=== PATIENT | female | born 1945 | race Caucasian/White ===

== ENCOUNTER → 2019-07-22 14:10 | Outpatient (CLI) | payer MEDICARE, OTHER, SELFPAY ==
--- NOTE | 2019-07-22 14:22 | XR_ITS ---
PROCEDURE: XR CHEST 2V CLINICAL HISTORY: CHRONIC COUGH COMPARISON: No exams were available for comparison FINDINGS: There is mild cardiomegaly without failure. There are no previous exams available for comparison. In the left perihilar region there is a nodular area of increased density measuring approximately 17 mm.. There is some minimal linear density noted at this region as well. There is also some faint nodularity overlying the left lower lung zone possibly due to nipple shadow or pulmonary nodule. In the right upper lobe there is a faint nodular areas of increased density. There is thickening of the right minor fissure No acute bony abnormalities. IMPRESSION: Abnormal chest CT with bilateral nodular opacities. Metastatic disease or nodular areas of infiltrate or inflammatory nodules considered. Suggest chest CT with contrast for further evaluation. Dictated by: Titus He MD 07/22/2019 16:23 Electronically signed by Titus He MD in [place] 07/22/2019 16:23
== END ==
PROVIDERS: PCP Family Medicine; Visit Provider Nurse Practitioner Family
DX: R05 Cough (principal)
CPT/HCPCS: 71046

== ENCOUNTER → 2019-08-26 12:24 | Outpatient (CLI) | payer MEDICARE, OTHER, SELFPAY ==
--- NOTE | 2019-08-26 12:35 | CT_ITS ---
PROCEDURE: CT CHEST W CON CLINCAL INDICATION: MULTIPLE LUNG NODULES COMPARISON: No exams were available for comparison TECHNIQUE: IV Contrast: 75ml Optiray 350 Axial images obtained with sagittal and coronal reformats. All CT scans at the facility use one or more dose reduction, viz: automated exposure control, ma/kV adjustment per patient size (including targeted exams where dose is matched to indication, i.e. head), or iterative reconstruction technique. FINDINGS: HEART AND MEDIASTINAL STRUCTURES: There is cardiomegaly without active CHF. Subcentimeter hypodensities in both thyroid lobes right greater than left are noted. Multinodular goiter is suspected. There is no lymphadenopathy. There is relative prominence of the main pulmonary arterial segments which would raise the question of pulmonary arterial hypertension. 4 LUNGS AND PLEURAL SPACES: Lungs are emphysematous in contour. There are innumerable noncalcified pulmonary nodules seen throughout both lung chung. A few calcified nodules are seen consistent with healed granulomatous disease. One of the largest nodules in the anterior left costophrenic sulcus image 66 series 3 measures 1.2 x 1.7 centimeters. Post inflammatory or neoplastic etiology would have to be considered for the noncalcified nodules. There are some linear densities in both lung chung consistent with fibrosis. There is some relative nodular thickening of the right minor fissure and superior aspect of right oblique fissure. BONY STRUCTURES: No acute bony abnormalities apparent. UPPER ABDOMEN: Indeterminate 3 x 7 millimeter hypodensity is seen in the extreme posterior right liver dome image 77 series 3. Unremarkable. ADDITIONAL FINDINGS: No other significant abnormalities. IMPRESSION: Innumerable indeterminate noncalcified pulmonary nodules both lung chung as described. Metastatic disease is not excluded. Pulmonary consultation is recommended. Consider biopsy for tissue diagnosis. Dictated by: Allen Feng 08/26/2019 13:50 Electronically signed by Allen Feng in [place] 08/26/2019 13:50
[2019-08-26 12:59] LABS: Blood Urea Nitrogen 16 mg/dl (7-17); Estimated Glomerular Filt Rate 82 ml/min (>60); GFR (African American) 100 ML/MIN (>60)
== END ==
PROVIDERS: PCP Family Medicine; Visit Provider Nurse Practitioner Family
DX: R91.8 Other nonspecific abnormal finding of lung field (principal)
CPT/HCPCS: 36415; 71260; 82565; 84520; Q9967

== ENCOUNTER → 2021-02-21 13:52 | Outpatient (CLI) | payer MEDICARE, OTHER, SELFPAY | PROVIDERS: PCP Family Medicine; Visit Provider Nurse Practitioner Family | DX: R91.8 Other nonspecific abnormal finding of lung field (principal); R05 Cough; I48.92 Unspecified atrial flutter | CPT/HCPCS: 94667 ==

== ENCOUNTER → 2021-06-19 12:44 | Outpatient (CLI) | payer MEDICARE, OTHER, SELFPAY | PROVIDERS: PCP Nurse Practitioner Family; Visit Provider Nurse Practitioner | DX: U07.1 COVID-19 (principal) | CPT/HCPCS: C9803; U0003; U0005 ==

== ENCOUNTER 2022-07-13 20:00 | Emergency (ER) | payer MEDICARE, OTHER, SELFPAY ==
[2022-07-13] VITALS (8 sets, daily range): BP systolic 106–129; BP diastolic 62–91; PULSE 70–86; RESP 16; TEMP 36.4–36.8; O2SAT 95–98; BMI 19.6
--- NOTE | 2022-07-13 20:22 | CT_ITS ---
PROCEDURE INFORMATION: Exam: CT Abdomen And Pelvis Without Contrast Exam date and time: 07/13/2022 8:35 PM Age: 76 years old Clinical indication: Abdominal pain; Flank; Left; Additional info: Left lower flank pain TECHNIQUE: Imaging protocol: Computed tomography of the abdomen and pelvis without contrast. Radiation optimization: All CT scans at this facility use at least one of these dose optimization techniques: automated exposure control; mA and/or kV adjustment per patient size (includes targeted exams where dose is matched to clinical indication); or iterative reconstruction. Other protocol: This patient has received 0 known CTs and 0 known cardiac nuclear medicine studies in the 12 months prior to the current study. COMPARISON: CT CHEST W CON 08/26/2019 1:13 PM FINDINGS: Lungs: Partly calcified nodule in the left lower lobe is compelling for a granuloma. Additional bibasilar linear scarring is noted. Pleural spaces: Small right pleural effusion. Heart: Cardiomegaly with particular prominence of the ventricles. Liver: Normal configuration. Homogeneous parenchyma. Gallbladder and bile ducts: No regional inflammation. No calcified stones. No ductal dilation. Pancreas: Normal. No ductal dilation. Spleen: Normal. No splenomegaly. Adrenal glands: Normal configuration. Kidneys and ureters: Left intrarenal stone is noted. No ureteral stones or obstruction. Stomach and bowel: Unremarkable. No obstruction. No mural thickening. Appendix: Normal appendix is confirmed. Intraperitoneal space: No free air. No significant fluid collection. Vasculature: Normal caliber arterial structures. Lymph nodes: No enlarged lymph nodes. Urinary bladder: Decompressed urinary bladder. Reproductive: Atrophic uterus as expected. No adnexal masses. Bones/joints: No fracture or destructive lesion. Prior left femoral ORIF. Soft tissues: Unremarkable. IMPRESSION: No acute abnormality to explain patient's left flank/lower quadrant pain. In particular, there is no evidence of renal obstruction or inflammation. An intrarenal stone is noted on the left.
[2022-07-13 20:23] LABS: Microscopic, Urine URINE MICROSCOPIC (MICROSCOPIC)
--- NOTE | 2022-07-13 20:23 | ECG_ITS ---
APPROVED REPORT Exam: Resting ECG HR:70 bpm ECG Measurements Heart Rate 70 AXES QRSd 131 QRS 95 QT 450 T 61 QTc 470 Conclusion ATRIAL FIBRILLATION RIGHT BUNDLE BRANCH BLOCK [120+ ms QRS DURATION, UPRIGHT V1, 40+ ms S IN I/aVL/V4/V5/V6] SEPTAL MYOCARDIAL INFARCTION , OF INDETERMINATE AGE [40+ ms Q WAVE IN V1/V2] MODERATE T-WAVE ABNORMALITY, CONSIDER LATERAL ISCHEMIA [-0.1+ mV T-WAVE IN I/aVL/V5/V6] ABNORMAL ECG UNCONFIRMED REPORT Electronically signed by : Doc Eastman MD 07/15/2022 18:56:16
--- NOTE | 2022-07-13 20:23 | XR_ITS ---
PROCEDURE INFORMATION: Exam: XR Chest Exam date and time: 07/13/2022 8:29 PM Age: 76 years old Clinical indication: Pain; Chest pressure TECHNIQUE: Imaging protocol: Radiologic exam of the chest. Views: 2 views. COMPARISON: CT CHEST W CON 08/26/2019 1:13 PM FINDINGS: Lungs: Stable right mid lung linear opacity is compelling for scar. Superimposed heterogeneous opacities are noted throughout both lungs may reflect superimposed pneumonitis. Nodular lung disease seen on prior CT in 2019 is not appreciated on today's exam. Pleural spaces: Right pleural effusion. Heart/Mediastinum: Enlarged cardiac silhouette. Bones/joints: Age appropriate. IMPRESSION: 1. Heterogeneous opacities throughout both lungs and small right pleural effusion are worrisome for pneumonia. 2. Unchanged cardiomegaly. 3. Previously seen nodular lung disease is not appreciated on today's exam.
--- NOTE | 2022-07-13 20:26 | PC.NURSE ---
NOTIFIED RADIOLOGY OF CT. DR. OROZCO IN TO SEE PATIENT.
[2022-07-13 20:28] LABS: Basophils # 0.1 K/mm3 (0-0.2); Eosinophils # 0.3 K/mm3 (0.0-0.4); Eosinophils % 4.6 % (0.1-12.0); Hematocrit 41.5 % (37.0-47.0); Hemoglobin 13.2 g/dL (12.2-16.2); Lymphocytes # 1.6 K/mm3 (0.7-4.5); Lymphocytes % 25.7 % (10-50); Mean Corpuscular HGB Conc 31.9 g/dL (31.8-35.4); Mean Corpuscular Hemoglobin 31.3 pg (27.0-31.2); Mean Corpuscular Volume 98.4 fl (81-99); Mean Platelet Volume 9.2 fl (7.4-10.4); Monocytes # 0.3 K/mm3 (0.1-1.0); Monocytes % 4.9 % (1.7-9.3); Neutrophils % 63.7 % (37.0-80.0); Platelet Count 151 K/mm3 (142-424); Red Blood Count 4.22 M/mm3 (4.20-5.40); Red Cell Distribution Width 13.6 % (11.5-17.5); White Blood Count 6.3 K/mm3 (4.8-10.8)
[2022-07-13 20:34] LABS: Appearance,Urine CLOUDY (Clear); Bilirubin,Urine Negative (Negative); Blood, Urine 3+ (Negative); Color,Urine RED (Yellow); Glucose,Urine (UA) TRACE (Negative); Ketones,Urine TRACE (Negative); Leukocyte Esterase,Urine 1+ (Negative); Nitrate,Urine POSITIVE (Negative); Protein,Urine 3+ (Negative); Specific Gravity, Urine 1.025 (1.005-1.030)
[2022-07-13 20:38] LABS: Alanine Aminotransferase 14 U/L (12-78); Albumin Level 4.4 g/dl (3.5-5.0); Albumin/Globulin Ratio 1.4 (1.1-1.8); Alkaline Phosphatase 84 U/L (38-126); Aspartate Amino Transferase 36 U/L (14-36); Bilirubin,Total 0.9 mg/dl (0.2-1.3); Blood Urea Nitrogen 21 mg/dl (7-17); Carbon Dioxide 35 mmol/L (22.0-30.0); Chloride 105 mmol/L (98-107); Creatinine Clearance Estimated 36 mL/min (50-200); Estimated Glomerular Filt Rate 44 ml/min (>60); GFR (African American) 53 ML/MIN (>60); Globulin 3.1 g/dL (1.3-3.2); Glucose 119 mg/dl (74-100); Sodium 143 mmol/L (136-145); Total Protein,Serum 7.5 g/dl (6.3-8.2)
--- NOTE | 2022-07-13 20:38 | PC.NURSE ---
pt gone to ct @ this time .
--- NOTE | 2022-07-13 20:42 | PC.NURSE ---
PATIENT RETURNED FROM CT SCAN.
[2022-07-13 20:43] LABS: C-Reactive Protein 4.7 mg/L (0-4)
--- NOTE | 2022-07-13 20:43 | PC.NURSE ---
pt back in room @ this time.
--- NOTE | 2022-07-13 20:50 | HMH.EDUROGF ---
Discharge Plan Disposition Patient Disposition: Home, Self-Care Prescriptions Prescriptions: New levofloxacin 500 mg tablet 500 mg PO DAILY Qty: 7 0RF No Action metoprolol succinate 50 mg tablet extended release 24 hr 75 mg PO DAILY Referrals Follow up/Referrals: Mary Ellen Roberts APRN [Primary Care Provider] - See instructions Clinical Impressions Clinical Impression: Urinary tract infection, Hematuria Instructions Patient Instructions: DI for Urinary Tract Infection (UTI) Discharge ED Provider: [place] (ED),Jesse Suarez Female Urogenital HPI General Chief complaint: Urogenital-Female Stated complaint: poss kidney inf, abd pain, vomiting Time Seen by Provider: 07/13/22 20:50 Mode of Arrival: Ambulatory Source of Information: Patient and Medical Record Limitations: No Limitations Description of Symptoms (Recalled from ER Triage Doc. by RN): Patient reported her legs started swelling 2 weeks ago so she consulted her woods boss, Dr. Hoyos, at [facility]. She reports hx of Afib. Dr. Hoyos placed her on eliquis and she took it for about 5 days after noticing blood in her urine. She reported findings to the MD and he informed her to stop the medicine. Last dose was 07/10. Patient reports tonight she started having left lower flank pain that radiates around to the front of her abdomen.Patient reports initial nasuea with pain. History of Present Illness HPI Narrative: hx of a fib and on eliquis and has blood in urine - lt flank pain w/o fever or rash MD Complaint: other (hematuria) Onset (ago): day(s) Radiation: L flank Severity: moderate Duration: intermittent Related Data Home Medications Medication Instructions Recorded Confirmed metoprolol succinate 50 mg 75 mg PO DAILY TACHYCARDIA 07/13/22 07/13/22 tablet,extended release 24 hr Previous Rx's Medication Instructions Recorded levofloxacin 500 mg tablet 500 mg PO DAILY #7 tabs 07/13/22 Allergies Allergy/AdvReac Type Severity Reaction Status Date / Time No Known Allergies Allergy Verified 07/13/22 20:19 [facility] Disclaimer: The information contained in this section may have been updated after the patient was seen, as this information can be updated by other users. Medical History (Updated 07/13/22 @ 23:05 by Jesse Leos (ED), ) Afib Femur fracture, left Tachycardia Social History Smoking Status: Never smoker alcohol intake: never current occupational status: retired Travel in the last 8 weeks: None ROS Obtained: Yes All systems reviewed & no additional complaints except as documented Physical Exam General General appearance: alert Head Head exam: normocephalic Eye Eye exam: Present PERRL and EOMI ENT ENT exam: Present mucous membranes moist Neck Neck exam: Present trachea midline Respiratory Respiratory exam: Present normal lung sounds bilaterally; Absent respiratory distress Cardiovascular Cardiovascular exam: Present irregular rhythm Abdominal Exam Abdominal exam: Present soft Extremities Exam Extremities exam: Present edema; Absent calf tenderness Back Exam Back exam: Absent CVA tenderness (L) or rashes Neurological Exam Neurological exam: Present alert and CN II-XII intact Psychiatric Psychiatric exam: Present normal affect Skin Skin exam: Absent rash Medical Decision Making Medical Records Medical records reviewed: Yes I reviewed the patient's medical records. Kike Inquiry Pt receiving controlled substance: No Vital Signs: 07/13/22 20:05 07/13/22 21:00 07/13/22 21:13 Temperature 97.5 F L Temperature Source Oral Pulse Rate 70 79 Pulse Rate [Right Brachial] 80 Respiratory Rate 16 Blood Pressure 114/63 106/67 L Blood Pressure [Left Arm] 129/63 Blood Pressure Mean [Left Arm] 85 Blood Pressure Source [Left Arm] Automatic Cuff Blood Pressure Position [Left Arm] Sitting 02 Sat by Pulse Oximetry 95 96 95 Oxygen Delivery Method Room Air 07/13/22 20:30 02
[2022-07-13 20:57] LABS: Procalcitonin 0.066 ng/mL (0.0-2.0)
[2022-07-13 21:02] LABS: Erythrocyte Sedimentation Rate 16 mm/hr (0-30)
[2022-07-13 21:06] LABS: Bacteria,Urine Trace /lpf; RBC,Urine TNTC #/hpf (0-3)
--- NOTE | 2022-07-13 21:14 | PC.NURSE ---
PATIENT REPORTS SHE IS BEING TREATED AT [facility], OPERATED BY [facility] WITH A FOUNDRY PROCESS ENGINEER FOR FINDINGS ON CHEST. CANCELLED CT CHEST.
--- NOTE | 2022-07-13 21:18 | PC.NURSE ---
Rounded on Pt. Pt helped with needs voiced @ this time.
--- NOTE | 2022-07-13 21:36 | PC.NURSE ---
ROUNDED ON PATIENT. PATIENT REQUESTED A PILLOW FOR HER LOWER BACK. PILLOW GIVEN TO PATIENT. NO OTHER NEEDS AT THIS TIME.
--- NOTE | 2022-07-13 21:58 | PC.NURSE ---
in room speaking with Pt at this time.
--- NOTE | 2022-07-13 22:09 | PC.NURSE ---
Rounded on Pt, no needs voiced at this time.
== END 2022-07-13 23:08 | disposition home or self-care (01) ==
PROVIDERS: Emergency Provider Emergency Medicine; PCP Nurse Practitioner Family
DX: N39.0 Urinary tract infection, site not specified (principal); I48.91 Unspecified atrial fibrillation
CPT/HCPCS: 71046; 74176; 80053; 81001; 84145; 85025; 85651; 86140; 87086; 93005; 99285

== ENCOUNTER 2025-04-24 18:57 | Emergency (ER) | payer MEDICARE, OTHER, SELFPAY ==
--- OUTSIDE RECORDS SUMMARY | 2022-05-07 10:31 | XMS_ITS | Encounter Summary ---
[facility] Address [address] [place] [address] Care Team Providers Care Nutritional Services Host Name Role Phone Clovis Barraza MD Primary Care Provider [phone] Encounter Details Date Type Department Care Team (Late Contact Info) Description 05/07/2022 10:31 AM EST Hospital Encounter [facility] PUL[facility] MEDICINE [address] [place] [id number] Social History Tobacco Use Types Packs/Day Years Used Date Smoking Tobacco: Never Passive Smoke Exposure: Past Smokeless Tobacco: Never Alcohol Use Standard Drinks/Week Comments Never 0 (1 standard drink = 0.6 oz pur e alcohol) AUDIT-C Answer Date Recorded Q1: How often do you have a drink containing alc ohol? Never 10/09/2020 Average Number of Drinks Not on file 021 Frequency of Binge Drinking Not on file 09/23 Comments No Sex and Gender Information Value Date Recorded Sex Assigned at Not on file Legal Sex Female 1:38 PM EDT Gender Identity Not on file Sexual Orientation Not on file documented as of this encounter Plan of Treatment Upcoming Encounters Date Type Department Care Team (Late st Contact Info) Description 04/29/2025 10:15 AM EST Registration [facility]UL[facility] MEDICINE [address] [facility] [address] [place] [address] 04/29/2025 10:30 AM EST Office Visit [facility] PULMON[facility]ICAL [facility] MEDICINE [address] [facility] [address] [place] [address] Michelle Lewis CONCRETE PAVEMENT INSTALLER [address] [place] [address] 05/11/2025 10:30 AM EST Office Visit [facility] CARDIOLOGY [address] [place] [phone] Aaron Horn MD [address] [facility] [address] [place] [address] documented as of this encounter Procedures Procedure Name Priority Date/Time Associated Diagnosis Comments XR CHEST PA AND LATERAL Routine 05/07/2022 10:32 AM EST Chronic cough documented in this encounter Results * XR Chest PA & Lateral (05/07/2022 10:32 AM EST) Anatomical Region Laterality Modality Body, Chest N/A Radiographic Autumn ging 05/07/2022 3:50 PM EST Impressions 05/07/2022 3:51 PM EST Linear volume loss is seen on the right, better characterized on prior CT. Faint peribronchial nodularity is also noted compatible with areas of tree-in-bud nodularity seen on prior CT. There is no new focal consolidation. There is no significant effusion or distinct pneumothorax. Unchanged heart and mediastinal contours. This report was finalized on 05/07/2022 3:51 PM by Jt Torres. Narrative 05/07/2022 3:51 PM EST DATE OF EXAM: 05/07/2022 10:32 AM PROCEDURE: XR CHEST PA AND LATERAL- INDICATIONS: SEE DIAGNOSIS; R05.3-Chronic cough COMPARISON: CT 03/27/2021 TECHNIQUE: Two radiologic views of the chest, PA and lateral, were obtained. FINDINGS: Linear volume loss is seen on the right, better characterized on prior CT. Faint peribronchial nodularity is also noted compatible with areas of tree-in-bud nodularity seen on prior CT. There is no new focal consolidation. There is no significant effusion or distinct pneumothorax. Unchanged heart and mediastinal contours. Procedure Note Jt Torres MD - 05/07/2022 DATE OF EXAM: 05/07/2022 10:32 AM PROCEDURE: XR CHEST PA AND LATERAL- INDICATIONS: SEE DIAGNOSIS; R05.3-Chronic cough COMPARISON: CT 03/27/2021 TECHNIQUE: Two radiologic views of the chest, PA and lateral, were obtained. FINDINGS: Linear volume loss is seen on the right, better characterized on prior CT. Faint peribronchial nodularity is also noted compatible with areas of tree-in-bud nodularity seen on prior CT. There is no new focal consolidation. There is no significant effusion or distinct pneumothorax. Unchanged heart and mediastinal contours. IMPRESSION: Linear volume loss is seen on the right, better characterized on prior CT. Faint peribronchial nodularity is also noted compatible with areas of tree-in-bud nodularity seen on prior CT. There is no new focal consolidation. There is no significant effusion or distinct pneumothorax. Unchanged heart and mediastinal contours. This report was finalized on 05/07/2022 3:51 PM by Jt Torres. Michelle Lewis APRN IMG DIAGNOSTIC IMAGING ORD ERABLES Final Result documented in this encounter Visit Diagnoses Not on filedocumented in this encounter Additional Health Concerns Infection Onset Date Last Indicated Resolved Time Tuberculosis (rule out) 01/02/2021 07/28/2023 documented as of this encounter Care Teams Nutritional Services Host Relationship Specialty Start Date End Date Clovis Barraza MD [address] [place] [address] PCP - General 05/23/15 documented as of this encounter
--- OUTSIDE RECORDS SUMMARY | 2023-04-28 09:53 | XMS_ITS | Encounter Summary ---
[facility] Address [address] [place] [address] Care Team Providers Care Plating Machine Operator Name Role Phone Clovis Barraza MD Primary Care Provider [phone] Encounter Details Date Type Department Care Team (Late Contact Info) Description 04/28/2023 9:53 AM EST Hospital Encounter [facility] PULMONARY & CRITICAL CARE MEDICINE [address] [place] [id number] Social History Tobacco Use Types Packs/Day Years [...] Info) Description 04/29/2025 10:15 AM EST Registration [facility] PULMONARY & CRITICAL CARE MEDICINE [address] [facility] [address] [place] [address] 04/29/2025 10:30 AM EST Office Visit [facility] PULMONARY & CRITICAL CARE MEDICINE [address] [facility] [address] [place] [address] Michelle Lewis EXECUTIVE CONSULTANT [address] [place] [address] 05/11/2025 10:30 AM EST Office Visit [facility] CARDIOLOGY [address] [place] [address] Aaron Horn MD [address] [facility] [address] [place] [address] documented as of this encounter Procedures Procedure Name Priority Date/Time Associated Diagnosis Comments XR CHEST PA AND LATERAL Routine 04/28/2023 9:54 AM EST Chronic cough documented in this encounter Results * XR Chest PA & Lateral (04/28/2023 9:54 AM EST) Anatomical Region Laterality Modality Body, Chest N/A Radiographic Autumn ging 04/28/2023 6:00 PM EST Impressions 04/28/2023 6:02 PM EST Impression: Increased lingular opacity question pneumonia or atelectasis. Follow-up two-view chest x-ray is recommended in 3 to 6 weeks time. Chronic change of the chest with emphysema, scarring and cardiomegaly. Electronically Signed: Stefani Oakley MD 04/28/2023 6:02 PM EST Workstation ID: [id number] Narrative 04/28/2023 6:02 PM EST XR CHEST PA AND LATERAL Date of Exam: 04/28/2023 9:54 AM EST Indication: COUGH Comparison: Chest x-ray 05/07/2022 Findings: Lungs are hyperexpanded. Decreased peripheral vascular markings. Cardiomegaly. Scarring in the right lung along the minor fissure. Scarring in the left lung at the major fissure. This is unchanged. Enlargement of pulmonary arteries. Scarring in the left lower lobe. Increased opacity in the lingula could be seen with superimposed pneumonia. Procedure Note Stefani Oakley MD - 04/28/2023 XR CHEST PA AND LATERAL Date of Exam: 04/28/2023 9:54 AM EST Indication: COUGH Comparison: Chest x-ray 05/07/2022 Findings: Lungs are hyperexpanded. Decreased peripheral vascular markings.Cardiomegaly. Scarring in the right lung along the minor fissure. Scarringin the left lung at the major fissure. This is unchanged. Enlargement ofpulmonary arteries. Scarring in the left lower lobe. Increased opacity in the lingula could be seen withsuperimposed pneumonia. IMPRESSION: Impression: Increased lingular opacity question pneumonia or atelectasis. [id number] chest x-ray is recommended in 3 to 6 weeks time. Chronic change of the chest with emphysema, scarring and cardiomegaly. Electronically Signed: Stefani Oakley MD 04/28/2023 6:02 PM EST Workstation ID: [id number] Michelle Lewis APRN IMG DIAGNOSTIC IMAGING ORD ERABLES Final Result documented in this encounter Visit Diagnoses Not on filedocumented in this encounter Additional Health Concerns Infection Onset Date Last Indicated Resolved Time Tuberculosis (rule out) 01/02/2021 07/28/2023 documented as of this encounter Care Teams Plating Machine Operator Relationship Specialty Start Date End Date Clovis Barraza MD [address] [place] [address] PCP - General 05/23/15 documented as of this encounter
[2025-04-24 18:59] VITALS: BP 129/67; PULSE 78; RESP 20; TEMP 37; O2SAT 95; BMI 16.4
--- OUTSIDE RECORDS SUMMARY | 2025-04-24 19:12 | XMS_ITS | Encounter Summary ---
Author Organization [facility] Address [address] [place] [address] Care Team Providers Care It Service Manager Name Role Phone Clovis Barraza MD Primary Care Provider [phone] Reason for Visit * Reason Comments Med Refill Encounter Details Date Type Department Care Team (Late st Contact Info) Description 04/14/2025 Refill [facility] CARDIOLOGY [address] [address] Aaron Horn MD [address] [facility] [address] [place] [id number] Med Refill Social History Tobacco Use Types Packs/Day Years [...] on file documented as of this encounter Miscellaneous Notes * Telephone Encounter - Dina Vale RN - 04/14/2025 7:39 AM EST Requested labs from PCP at this time documented in this encounter Plan of Treatment Upcoming Encounters Date Type Department Care Team (Late st Contact Info) Description 04/29/2025 10:15 AM EST Registration [facility] PULMONARY & CRITICAL CARE MEDICINE [address] [facility] [address] [place] [address] 04/29/2025 10:30 AM EST Office Visit [facility] PULMONARY & CRITICAL CARE MEDICINE [address] [facility] [address] [place] [address] Michelle Lewis, TOBACCO FARMWORKER [address] [place] [address] 05/11/2025 10:30 AM EST Office Visit [facility] CARDIOLOG[facility] [address] [facility] [address] [place] [address] Aaron Horn MD [address] [facility] [address] [place] [address] documented as of this encounter Visit Diagnoses Not on filedocumented in this encounter Additional Health Concerns Infection Onset Date Last Indicated Resolved Time Tuberculosis (rule out) 01/02/2021 07/28/2023 documented as of this encounter Care Teams It Service Manager Relationship Specialty Start Date End Date Clovis Barraza MD [address] [place] [address] PCP - General 05/23/15 documented as of this encounter
--- OUTSIDE RECORDS SUMMARY | 2025-04-24 19:12 | XMS_ITS | Encounter Summary ---
[facility] Address [address] [place] [address] Care Team Providers Care Payroll Coordinator Name Role Phone Clovis Barraza MD Primary Care Provider [phone] Reason for Visit * Reason Comments Med Refill Encounter Details Date Type Department Care Team ([facility] Contact Info) Description 04/18/2025 Refill [facility] CARDIOLOG[facility] [address] [facility] [address] [place] [address] Aaron Horn MD [address] [facility] [address] [place] [phone] Med Refill Social History Tobacco Use Types [...] Encounters Date Type Department Care Team (Late Contact Info) Description 04/29/2025 10:15 AM EST Registration [facility] PULMONARY & CRITICAL CARE MEDICINE [address] [place] [address] 04/29/2025 10:30 AM EST Office Visit [facility] PULMONARY & CRITICAL CARE MEDICINE [address] [place] [phone] Michelle Lewis, BULB PLANTER [address] [place] [address] 05/11/2025 10:30 AM EST Office Visit [facility] [address] [facility] [address] [place] [address] Aaron Horn MD [address] [facility] [address] [place] [address] documented as of this encounter Visit Diagnoses Not on filedocumented in this encounter Additional Health Concerns Infection Onset Date Last Indicated Resolved Time Tuberculosis (rule out) 01/02/2021 07/28/2023 documented as of this encounter Care Teams Payroll Coordinator Relationship Specialty Start Date End Date Clovis Barraza MD [address] [place] [address] PCP - General 05/23/15 documented as of this encounter
--- OUTSIDE RECORDS SUMMARY | 2025-04-24 19:12 | XMS_ITS | Clinical Summary ---
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 20 tablet 11/11/19 25 Active fluticasone (FLOVENT HFA) 110 MCG/ACT inhalerIndicati ons:Chronic cough,Bronchiec tasis without acute exacerbation USE 2 INHALATIONS TWICE A DAY 36 g 3 12/21/19 25 Active furosemide (LASIX) 20 MG tablet TAKE 1 TABLET DAILY 90 tablet 04/14/20 25 Active metoprolol succinate XL (TOPROL-XL) 50 MG 24 hr tablet TAKE ONE AND ONE-HALF TABLETS DAILY 135 tablet 3 04/18/20 25 Active metoprolol succinate XL (TOPROL-XL) 50 MG 24 hr tablet Take 1.5 tablets by mouth Daily. 135 tablet 3 04/14/20 24 025 Discontinued furosemide (LASIX) 20 MG tablet Take 1 tablet by mouth Daily. 90 tablet 3 04/14/20 24 025 Discontinued Active Problems Problem Noted Date Diagnosed Date Atrial fibrillation, persistent 07/31/2022 Nonrheumatic tricuspid valve regurgitation 07/31 Pulmonary hypertension 07/31/2022 Right heart enlargement 07/31/2022 PFO (patent foramen ovale) 07/31/2022 Chronic cough 12/25/2020 Multiple pulmonary nodules 12/25/2020 Encounters Date Type Department Care Team Description 04/18/2025 Refill [facility] [address] [facility] [place] [address] Aaron Horn MD Med Refill 04/14/2025 Refill [facility] [address] [place] [address] Aaron Horn MD Med Refill from Last 3 Months Immunizations Immunization Administration Dates Next Due Arexvy (RSV, Adults 60+ yrs) 03/23/2024 COVID-19 (MODERNA) 1st,2nd,3 rd Dose Monovalent 04/28/2021,06/30/2020,06/02/2020 FLUAD TRI 65YR+ 03/23/2024 Fluad Quad 65+ 04/08/2023,04/23/2022,04/28/2021 Fluzone >6mos 02/10/2020 Fluzone High-Dose 65+YRS 02/10/2017,03/08/2016 Hep B, Unspecified 06/06/1995 Td (TDVAX) 07/27/1996 Family History Medical History Relation Name Comments Heart disease Brother COPD Father Anuerysm Mother Cancer Sister Recovered Relation Name Status Comments Brother Alive Child x3 Alive Father Maternal Grandfather Maternal Grandmother Mother Paternal Grandfather Paternal Grandmother Sister Alive Social History Tobacco Use Types Packs/Day Years Used Date Smoking Tobacco: Never Passive Smoke Exposure: Past Smokeless Tobacco: Never Tobacco Cessation:Counseling Given: Not Answered Alcohol Use Standard Drinks/Week Comments Never 0 [...] on file Sexual Orientation Not on file Last Filed Vital Signs Vital Sign Reading Time Taken Comments Blood Pressure 104/62 04/28/2024 9:28 AM EST Pulse 72 04/28/2024 9:28 AM EST Temperature 36.6 C (97.8 F) 04/28/2024 9:28 AM EST Respiratory Rate 16 12/25/2020 10:0 6 AM EDT Oxygen Saturation 97% 04/28/2024 9:2 8 AM EST room air resting Inhaled Oxygen Concentration - - Weight 47.1 kg (103 lb 14.4 oz) 04/28/2024 9:28 AM EST Height 170.2 cm (5' 7 ) 04/28/2024 9:28 AM EST Body Mass Index 16.27 04/28/2024 9:28 AM EST Plan of Treatment Upcoming Encounters Date Type Department Care Team (Late st Contact Info) Description 04/29/2025 10:15 AM EST Registration [facility] [address] [place] [address] [address] [place] [address] 04/29/2025 10:30 AM EST Office Visit [facility] [address] [facility] [address] [place] [address] Michelle Lewis, EMBLEM MAKER [address] [place] [address] 05/11/2025 10:30 AM EST Office Visit [facility] [address] [facility] [address] [place] [id number] Aaron Horn MD [address] [facility] [address] [place] [address] Health Maintenance Due Date Last Done Comments DXA SCAN 1946 TDAP/TD VACCINES (1 - Tdap) 07/28/1996 07/27/1996 Pneumococcal Vaccine 50+ (1 of 1 - PCV) 1996 ZOSTER VACCINE (1 of 2) 1996 ANNUAL WELLNESS VISIT 08/24/2020 HEPATITIS C SCREENING 08/24/2020 INFLUENZA VACCINE 12/24/2024 03/23/2024, , 04/23/2022, Additional history exists COVID-19 Vaccine (2024-2 6 season) 2025 04/28/2021, 06/30/2020, 06/02/2020 RSV Vaccine - Adults Completed 03/23/2024 Additional Health Concerns Infection Onset Date Last Indicated Tuberculosis (rule out) 01/02/2021 07/28/19 24 Insurance MEDICARE A & B [facility] Care Teams Quill Cleaning Machine Operator Relationship Specialty Start Date End Date Clovis Barraza MD [address] [place] [address] PCP - General 05/23/15
--- NOTE | 2025-04-24 19:15 | XR_ITS ---
PROCEDURE INFORMATION: Exam: XR Chest Exam date and time: 04/24/2025 8:05 PM Age: 79 years old Clinical indication: Injury or trauma; Fall; Blunt trauma (contusions or hematomas); Additional info: Tenderness S/P fall TECHNIQUE: Imaging protocol: Radiologic exam of the chest. Views: 1 view. COMPARISON: 1. CR XR CHEST 2V 07/13/2022 8:[address] CHEST W CON 08/26/2019 1:13 PM FINDINGS: Lungs: Bronchiectasis with mucoid impaction in the right upper lobe as noted on the earlier CT neck redemonstrated and appears increased compared to chest x-ray 07/13/2022. Pleural spaces: Chronic blunting of the right costophrenic angle suggesting pleural-parenchymal scarring redemonstrated. Lungs are otherwise clear. Heart/Mediastinum: Cardiomegaly redemonstrated. Bones/joints: Left humerus fracture redemonstrated. No other acute fracture seen. IMPRESSION: Right upper lobe bronchiectasis with mucoid impaction that may be related to chronic infectious or inflammatory process with interval worsening. Advise further assessment with nonemergent chest CT with contrast.
--- NOTE | 2025-04-24 19:15 | XR_ITS ---
PROCEDURE INFORMATION: Exam: XR Left Humerus Exam date and time: 04/24/2025 8:05 PM Age: 79 years old Clinical indication: Injury or trauma; Fall; Blunt trauma (contusions or hematomas); Shoulder; Bilateral; Additional info: Tenderness S/P fall TECHNIQUE: Imaging protocol: Radiologic exam of the left humerus. Views: 2 or more views. COMPARISON: CR XR SHOULDER LT MIN 2V 04/24/2025 8:05 PM FINDINGS: Bones/joints: Comminuted proximal humerus fractures redemonstrated. No other fracture evident. Soft tissues: Normal. IMPRESSION: Proximal humerus fractures.
--- NOTE | 2025-04-24 19:15 | CT_ITS ---
PROCEDURE INFORMATION: Exam: CT Head Without Contrast Exam date and time: 04/24/2025 8:00 PM Age: 79 years old Clinical indication: Injury or trauma; Fall; Blunt trauma (contusions or hematomas); Additional info: Fall on blood thinners TECHNIQUE: Imaging protocol: Computed tomography of the head without contrast. Radiation optimization: All CT scans at this facility use at least one of these dose optimization techniques: automated exposure control; mA and/or kV adjustment per patient size (includes targeted exams where dose is matched to clinical indication); or iterative reconstruction. COMPARISON: No relevant prior studies available. FINDINGS: Brain: No intracranial hemorrhage. Mild atrophic changes of the ventricles and subarachnoid spaces. Mild chronic small-vessel ischemic changes noted. No mass, mass effect or midline shift. Intracranial atherosclerotic changes are noted. Cerebral ventricles: See Brain finding. Paranasal sinuses: Incidental completely opacified left maxillary sinus. There is medial expansion of the left maxillary sinus into the left nasal cavity. Mastoid air cells: Visualized mastoid air cells are well aerated. Bones: Unremarkable. No acute fracture. Soft tissues: Unremarkable. IMPRESSION: 1. No acute intracranial abnormality. Chronic changes as above. 2. Incidental completely opacified left maxillary sinus. There is medial expansion of the left maxillary sinus into the left nasal cavity. The possibility of the opacified sinus maybe due to a developing mucocele can not be excluded. Advise clinical assessment and follow-up and consider ENT consultation.
--- NOTE | 2025-04-24 19:15 | XR_ITS ---
PROCEDURE INFORMATION: Exam: XR Left Shoulder Exam date and time: 04/24/2025 8:05 PM Age: 79 years old Clinical indication: Injury or trauma; Fall; Blunt trauma (contusions or hematomas); Shoulder; Left; Additional info: Tenderness S/P fall TECHNIQUE: Imaging protocol: Radiologic exam of the left shoulder. Views: 2 or more views. COMPARISON: CR XR HUMERUS LT 04/24/2025 8:05 PM FINDINGS: Bones/joints: Nondisplaced comminuted fractures of the proximal humerus with transverse component through the metaphysis and vertical components through the tuberosity region noted. No evident dislocation. Soft tissues: Normal. IMPRESSION: Proximal humerus fractures.
--- NOTE | 2025-04-24 19:15 | CT_ITS ---
PROCEDURE INFORMATION: Exam: CT Cervical Spine Without Contrast Exam date and time: 04/24/2025 8:02 PM Age: 79 years old Clinical indication: Injury or trauma; Fall; Blunt trauma; Additional info: Fall on blood thinners TECHNIQUE: Imaging protocol: Computed tomography of the cervical spine without contrast. Radiation optimization: All CT scans at this facility use at least one of these dose optimization techniques: automated exposure control; mA and/or kV adjustment per patient size (includes targeted exams where dose is matched to clinical indication); or iterative reconstruction. COMPARISON: 1. CR XR CHEST PORTABLE 04/24/2025 8:[address] HEAD/BRAIN WO CON 04/24/2025 8:00 PM FINDINGS: Bones: No evident fracture. Degenerative changes of the C-spine most pronounced at C3-C4 through C6-C7. Otherwise unremarkable CT of the C-spine. Alignment and vertebral body heights are intact. Lungs: Dilated opacified airways in the partially included right lung apex compatible with bronchiectasis with mucoid impaction incidentally noted. Soft tissues: Unremarkable. IMPRESSION: 1. Degenerative changes. No acute abnormality. 2. Bronchiectasis with mucoid impaction involving essentially all of the airways of the partially included right lung apex. Advise further assessment with nonemergent chest CT.
--- NOTE | 2025-04-24 19:17 | ED_ITS ---
Discharge Plan Disposition Patient Disposition: Home, Self-Care Condition: Good Prescriptions Prescriptions: New oxycodone 5 mg tablet 5 mg PO DAILY Qty: 6 0RF No Action metoprolol succinate 50 mg tablet extended release 24 hr 75 mg PO DAILY levofloxacin 500 mg tablet 500 mg PO DAILY Qty: 7 0RF Referrals Follow up/Referrals: Viktor Monique DO [Staff Physician, Orthopedics] - See instructions Mary Ellen Roberts APRN [Primary Care Provider, Medical] - See instructions Activity Restrictions/Add. Instructions Additional Instructions/Restrictions: I have sent you with a referral to Dr. Monique who is her orthopedic doctor. You will need to call them tomorrow to schedule an appointment. You can take Tylenol as needed for pain control. Keep your arm in the sling as much as possible. Turn to the emergency department for any acute or worsening symptoms. You do have some chronic scarring in your lung, follow-up with your primary care provider for further imaging. Clinical Impressions Clinical Impression: Fracture of proximal end of humerus Print Language Print Language: Estonian Discharge ED Provider: Shiela Goldstein General Adult HPI General Chief complaint: Extremity Injury, Upper Stated complaint: AO 04-24 fell and hit left shoulder Time Seen by Provider: 04/24/25 19:03 Mode of Arrival: Ambulatory Source of Information: Patient and Spouse Description of Symptoms (Recalled from ER Triage Doc. by RN): patient presents to ED after a fall at home. patient was at her family thanksgiving dinner when she tripped over a rug, landing on her left shoulder/upper arm. History of Present Illness HPI narrative: Patient is a 79-year-old female with a past medical history of A-fib on Eliquis who presented to the emergency department after a fall at home. Patient states that she was having Thanksgiving dinner with her family today when she tripped on the rug landed on her left shoulder. Patient states she did hit her head but did not lose consciousness. Patient is complaining of pain in her left shoulder. States that her pain is a 5 out of 10 if she does not move the shoulder but had 10 out of 10 if she tries to move it. Patient denies any numbness weakness or any paresthesias. Related Data Home Medications ?Medication ?Instructions ?Recorded ?Confirmed metoprolol succinate 50 mg 75 mg PO DAILY TACHYCARDIA 07/13/22 07/13/22 tablet,extended release 24 hr Previous Rx's ?Medication ?Instructions ?Recorded levofloxacin 500 mg tablet 500 mg PO DAILY #7 tabs oxycodone 5 mg tablet 5 mg PO DAILY #6 tabs Allergies Allergy/AdvReac Type Severity Reaction Status Date / Time No Known Allergies [facility]22 [facility] Disclaimer: The information contained in this section may have been updated after the patrizia guadalupe was seen, as this information can be updated by other users. Medical History (Updated 04/24/25 @ 21:38 by Shiela Goldtsein DO) Afib Tachycardia Femur fracture, left Social History (Updated 07/13/22 @ 23:05 by Jesse Leos (ED)MD) Smoking Status: Never smoker alcohol intake: never current occupational status: retired Travel in the last 8 weeks?: None Have you lived/traveled outside US in past 30 days?: No Contact w/someone who lives/traveled outside US past 30 days?: No Exposure to someone with infectious disease in past 14 days?: No Do you have a fever (greater than 100.4 F or 38 C)?: No Have you tested positive for COVID-19?: No Exposed to someone with COVID-19 in past 14 days?: No Do you have a sore throat?: No Do you have a cough?: No Do you have any weakness?: No Do you have any diarrhea?: No Are you experiencing any unusual bleeding?: No Do you have any muscle aches/pain?: No Do you have any abdominal pain?: No Are you experiencing loss of taste or smell?: No ROS Obtained: Yes All systems reviewed & no additional complaints except as documented and Yes Systems reviewed as appropriate & no additional complaints except as documented Physical Exam General General appearance: alert and in no apparent distress Head Head exam: atraumatic, normocephalic and normal inspection Eye Eye exam: Present normal appearance, PERRL and EOMI; Absent scleral icterus ENT ENT exam: Present normal exam and normal external ear exam Neck Neck exam: Present normal inspection and full ROM; Absent tenderness (no cervical spine tenderness) Chest Chest inspection: Present normal inspection and symmetric chest wall rise Respiratory Respiratory exam: Present normal lung sounds bilaterally; Absent respiratory distress or wheezes Cardiovascular Cardiovascular exam: Present regular rate, normal rhythm and normal heart sounds Abdominal Exam Abdominal exam: Present soft and distention; Absent tenderness, guarding or rebound Extremities Exam Extremities exam: Present normal inspection, full ROM and other (LUE with tenderness at the proximal humerus, no appreciable deformity, 2+ radial pulse, NVI) Back Exam Back exam: Present normal inspection and full ROM Neurological Exam Neurological exam: Present alert and oriented X3 Psychiatric Psychiatric exam: Present normal affect and normal mood Skin Skin exam: Present warm and dry Medical Decision Making Medical Records Medical records reviewed: Yes I reviewed the patient's medical records. Screening: Per USPSTF and CDC recommendations, given the prevalence of disease in our region, it is our hospital?s policy to screen for HIV and viral Hepatitis for all patients aged 18 and over and those with ongoing risk factors. Kike Inquiry Pt receiving controlled substance: No Vital Signs: 04/24/25 18:59 04/24/25 21:39 Temperature 98.6 F 98.1 F Temperature Source Oral Oral Pulse Rate 77 Pulse Rate [Right Radial] 78 Respiratory Rate 20 14 Blood Pressure 133/76 Blood Pressure [Right Arm] 129/67 Blood Pressure Mean [Right Arm] 87 Blood Pressure Source Automatic Cuff Blood Pressure Source [Right Arm] Automatic Cuff Blood Pressure Position [Right Arm] Sitting 02 Sat by Pulse Oximetry 95 Oxygen Delivery Method Room Air Room Air Orders (Tests/Meds): ED MEDICATIONS Discontinued Medications Generic Name Dose Route Start Last Admin Trade Name Freq PRN Reason Stop Dose Admin Acetaminophen 1,000 mg 04/24/25 19:15 04/24/25 19:21 Acetaminophen 500mg Tab PO 04/24/25 19:16 1,000 mg ONCE ONE Administration Methocarbamol 500 mg 04/24/25 19:17 04/24/25 19:21 Methocarbamol 500mg Tablet PO 04/24/25 19:18 500 mg ONCE ONE Administration Oxycodone HCl 5 mg 04/24/25 21:41 04/24/25 21:49 Oxycodone 5mg Immediate Release Tablet PO 04/24/25 21:42 5 mg ONCE ONE Administration ORDERS Category Date Time Status CT cervical spine wo con Stat Cat Scan 04/24/25 19:[address] head/brain wo con Stat Cat Scan 04/24/25 19:15 Completed CXR --portable [XR chest portable] Stat Exams 04/24/25 19:15 Completed Humerus XR left [XR humerus LT] Stat Exams 04/24/25 19:15 Completed Shoulder XR left minimum 2 views [XR shoulder LT min 2V Exams 04/24/25 19:15 Completed ] Stat Medical Decision Narrative: Patient is a 79-year-old female with a past medical history of A-fib on Eliquis who presented to the emergency department after a fall at home. On arrival, patient was hemodynamically stable with unremarkable vital signs. Differential included but not limited to: Intracranial pathology, cervical spine fracture, other fracture, dislocation, sprain, strain, amongst others. CT scan of the head and the cervical spine were obtained which showed no acute pathology. Chest x-ray left shoulder x-ray left humerus x-ray were obtained which showed a proximal humerus fracture with no significant displacement. Patient's chest x-ray did show some bronchiectasis and scarring. Patient states that this is known and she follows up with a wind turbine mechanic already. Discussed the case with Dr. Monique our orthopedic doctor. Patient was placed into a sling and patient was sent with outpatient orthopedic follow-up. Patient was given return precautions and patient was otherwise discharged home in stable condition. Critical Care Critical Care Time Critical Care Time: No
[2025-04-24] MEDS: METHOCARBAMOL 500MG TABLET 500 MG PO (19:21)
[2025-04-24] MEDS: ACETAMINOPHEN 500MG TAB 1000 MG PO (19:21)
[2025-04-24 21:39] VITALS: BP 133/76; PULSE 77; RESP 14; TEMP 36.7; O2SAT 96
[2025-04-24] MEDS: OXYCODONE 5MG IMMEDIATE RELEASE TABLET 5 MG PO (21:49)
== END 2025-04-24 21:50 | disposition home or self-care (01) ==
PROVIDERS: Emergency Provider Student in an Organized Health Care Education/Training Program; PCP Nurse Practitioner Family
DX: S42.352A Displaced comminuted fracture of shaft of humerus, left arm, initial encounter for closed fracture (principal); W01.10XA Fall on same level from slipping, tripping and stumbling with subsequent striking against unspecified object, initial encounter
CPT/HCPCS: 70450; 71045; 72125; 73030; 73060; 99284; 99285

== ENCOUNTER 2025-05-09 09:12 | Outpatient (CLI) | payer MEDICARE, OTHER, SELFPAY ==
--- NOTE | 2025-05-09 09:15 | XR_ITS ---
PROCEDURE INFORMATION: Exam: XR Left Humerus Exam date and time: 05/09/2025 9:24 AM Age: 79 years old Clinical indication: Pain; Upper arm; Left; Additional info: FX f/u TECHNIQUE: Imaging protocol: Radiologic exam of the left humerus. Views: 2 or more views. COMPARISON: CR XR HUMERUS LT 04/24/2025 8:05 PM FINDINGS: Bones/joints: Subjective osteopenia. Mild interval healing changes of the proximal left humerus surgical neck comminuted, impacted and minimally displaced fracture. Fracture lines are still visible. No significant callus formation. No new fracture or malalignment. Soft tissues: Normal. IMPRESSION: Mild interval healing changes of the proximal left humerus surgical neck comminuted, impacted and minimally displaced fracture. Fracture lines are still visible. No significant callus formation. No new fracture or malalignment.
== END 2025-05-09 23:59 ==
LOC: RAD 09:13
PROVIDERS: PCP Nurse Practitioner Family; Visit Provider Physician Assistant
DX: S42.212D Unspecified displaced fracture of surgical neck of left humerus, subsequent encounter for fracture with routine healing (principal); X58.XXXD Exposure to other specified factors, subsequent encounter
CPT/HCPCS: 73060